=== PATIENT | female | born 1975 | race Caucasian/White ===

== ENCOUNTER 2016-07-18 21:55 | Observation (INO) | payer MEDICAID ==
[~2016-07-18] VITALS: Ht 154.9 cm; Wt 60.0 kg
[~2016-07-18 21:55] MED LIST: ALBU8I; ERGO50000 PO; FERR325T PO; LORTA5 PO; SENN1TAB11 PO; SUMA50 PO; ZOFR4TAB3 SL
[2016-07-18 21:58] VITALS: BP 158/83; PULSE 104; RESP 18; TEMP 98.7; O2SAT 100
--- NOTE | 2016-07-18 22:38 | PD ---
Physical Exam Time Seen by Provider: 22:37 Narrative 41 y/o here with substernal cp radiating into left arm , symptoms started today. +nausea, h/a. VSS seen at triage desk. Awaiting bed placement. Data Data Last Documented VS Vital Signs Date Time Temp Pulse Resp B/P Pulse Ox O2 Delivery O2 Flow Rate FiO2 07/18/16 21:58 98.7 104 18 158/83 100 MDM Medical Record Reviewed: Yes Supervised Visit with GEORGES: Yes John Turner Jul 18, 2016 22:38
[2016-07-18] MEDS ORDERED: FERR1TAB36 PO (23:50)
[2016-07-18] MEDS ORDERED: VENTAER INH (23:50)
[2016-07-18] MEDS ORDERED: LISI-515 PO (23:50)
[2016-07-19] MEDS ORDERED: ASPIRIN 81 MG CHEW TAB PO ONE
[2016-07-19] MEDS ORDERED: SODIUM CHLORIDE 0.9% FLUSH 10 ML FLUSH IVF PRN
[2016-07-19 00:07] VITALS: BP_SYST 133; BP_SYST 166; BP_DIAS 77; BP_DIAS 84; PULSE 89; RESP 18; O2SAT 100
[2016-07-19 00:18] LABS: AUTOMATED NEUTROPHIL # 4.8 TH/MM3 (1.8-7.7); BASOPHIL % 0.4 % (0.0-2.0); EOSINOPHIL % 0.6 % (0.0-4.0); HEMATOCRIT 32.1 % (35.0-46.0); LYMPHOCYTE # 1.4 TH/MM3 (1.0-4.8); MEAN CELL VOLUME 71.3 FL (80.0-100.0); MEAN CORPUSCULAR HEMOGLOBIN 22.3 PG (27.0-34.0); MEAN CORPUSCULAR HGB CONC 31.3 % (32.0-36.0); MONO % 9.1 % (0.0-8.0); NEUT % 69.9 % (16.0-70.0); PLATELET COUNT 264 TH/MM3 (150-450); RED BLOOD COUNT 4.49 MIL/MM3 (4.00-5.30); RED CELL DISTRIBUTION WIDTH 16.5 % (11.6-17.2); WHITE BLOOD COUNT 6.9 TH/MM3 (4.0-11.0)
--- NOTE | 2016-07-19 00:36 | PD ---
HPI Chief Complaint: Cardiac Complaint Time Seen by Provider: 23:46 Travel History International Travel<30 days: No Contact w/Intl Traveler<30days: No Traveled to known affect area: No History of Present Illness HPI The patient is a 41 year old female who presents to the [facility] emergency department with a history of chest pain that began prior to arrival and was radiating into her left arm. She reports that she has shortness of breath associated with this. She reports that she has had chest pain in the past, however this seemed to be worse. She reports that she last had a stress test done with the [facility] approximate 2 years ago. The patient reports that she does have a history of anemia. Her hemoglobin was last checked in May and reportedly 8.6. She reports that she is anemic related to her menstrual cycles. She reports that she has difficulty following up with a intelligence manager because of her insurance. She reports that she was recently diagnosed with high blood pressure by her primary care physician, Dr. Currie. She was started on lisinopril this past week. The patient reports having a headache that is bitemporal currently. She denies having any diaphoresis, nausea, or vomiting. I review of systems, the patient denies any recent fevers , cough, congestion, neck pain, abdominal pain, diarrhea, urinary symptoms, or neurologic symptoms. [facility] Past Medical History Narrative Medical The patient's past medical history is significant for asthma, anemia with a history of blood transfusions in the past, history of migraine headaches, hypertension, menorrhagia Anemia: Yes Asthma: Yes Diminished Hearing: No Hypertension: Yes Migraines: Yes Tetanus Vaccination: Unknown Influenza Vaccination: No ?: Not LMP: 06/16/16 : 7 Para: 4 Miscarriage: 3 Tubal Ligation: Yes Past Surgical History Narrative Surgical The patient's past surgical history is significant for bilateral tubal ligation , umbilical hernia repair, right breast lumpectomy that was benign. Abdominal Surgery: Yes (umbilical hernia repair) Section: Yes Other Surgery: Yes (right breast lumpectomy (benign)) Social History Alcohol Use: No Tobacco Use: No (quit 2011) Substance Use: No Allergies-Medications (Allergen,Severity, Reaction): Coded Allergies: Penicillin (Verified Allergy, Intermediate, Hives, 07/18/16) Reported Meds & Prescriptions Reported Meds & Active Scripts Active Reported Iron (Ferrous Sulfate) 325 Mg Tab 325 Mg PO TIDPC Ventolin Hfa 18 GM Inh (Albuterol Sulfate) 90 Mcg/Act Aer 2 Puff INH Q4-6H PRN Lisinopril 20 Mg Tab 20 Mg PO DAILY Review of Systems Except as stated in HPI: all other systems reviewed are Neg General / Constitutional: No: Fever Eyes: No: Visual changes HENT: Positive: Headaches, No: Congestion, Neck Stiffness, Neck Pain Cardiovascular: Positive: Chest Pain or Discomfort, No: Diaphoresis Respiratory: Positive: Shortness of Breath, No: Cough Gastrointestinal: No: Nausea, Vomiting, Diarrhea, Abdominal Pain Genitourinary: No: Dysuria Musculoskeletal: No: Pain Skin: No Rash Neurologic: Positive: Headache, No: Weakness, Focal Abnormalities, Change in Mentation, Slurred Speech Psychiatric: No: Depression Endocrine: No: Polydipsia Hematologic/Lymphatic: No: Easy Bruising Physical Exam Narrative General: The patient is a well-developed well-nourished female in no acute distress. Head and Neck exam: Head is normocephalic atraumatic. Eyes: EOMI, pupils are equal round and reactive to light. Nose: Midline septum with pink mucous membranes Mouth: Dentition unremarkable. Moist mucus membranes. Posterior oropharynx is not erythematous. No tonsillar hypertrophy. Uvula midline. Airway patent. Neck: No palpable lymphadenopathy. No nuchal rigidity. No thyromegaly. Cardiovascular: Regular rate and rhythm without murmurs, gallops, or rubs. Lungs: Clear to auscultation bilaterally. No wheezes, rhonchi, or rales. Abdomen: Soft, without tenderness to palpation in all 4 quadrants of the abdomen. No guarding, rebound, or rigidity. Normal bowel sounds are audible. No tenderness on palpation of McBurney's point. Negative Ochoa sign. Extremities: No clubbing, cyanosis, or edema. 2+ pulses in all 4 extremities. No calf tenderness on palpation. Back: No costovertebral angle tenderness to palpation. Neurologic Exam: Grossly nonfocal. Skin Exam: No rash noted. Intact skin that is warm and dry. Data Data Last Documented VS Vital Signs Date Time Temp Pulse Resp B/P Pulse Ox O2 Delivery O2 Flow Rate FiO2 07/19/16 00:07 89 18 166/77 100 Room Air 133/84 07/18/16 21:58 98.7 Orders Electrocardiogram (07/18/16 23:56) B-Type Natriuretic Peptide (07/18/16 23:56) Ckmb (Isoenzyme) Profile (07/18/16 23:56) Complete Blood Count With Diff (07/18/16 23:56) Comprehensive Metabolic Panel (07/18/16 23:56) Magnesium (Mg) (07/18/16:56) Prothrombin Time / Inr (Pt) (07/18/16:56) Act Partial Throm Time (Ptt) (07/18/16:56) Troponin I (07/18/16:56) Lipase (07/18/16:56) Chest, Single Ap (07/18/16:56) Ecg Monitoring (07/18/16:56) Bilateral Bp Monitoring (07/18/16:56) Iv Access Insert/Monitor (07/18/16:56) Oximetry (07/18/16:56) Oxygen Administration (07/18/16:56) Aspirin Chew (Aspirin Chew) (07/19/16 00:00) Sodium Chloride 0.9% Flush (Ns Flush) (07/19/16 00:00) Ed Urine Pregnancytest Poc (07/18/16 23:56) Type And Screen (07/19/16 00:28) Sodium Chlorid 0.9% 500 Ml Inj (Ns 500 M (07/19/16 00:45) Acetaminophen (Tylenol) (07/19/16 00:45) Nitroglycerin 2% Oint (Nitroglycerin 2% (07/19/16 00:45) Potassium Chloride (Kcl) (07/19/16 01:30) Admit Order (Ed Use Only) (07/19/16 01:30) Labs Laboratory Tests Test 07/19/16 07/19/16 00:04 00:30 White Blood Count 6.9 TH/MM3 Red Blood Count 4.49 MIL/MM3 Hemoglobin 10.0 GM/DL Hematocrit 32.1 % Mean Corpuscular Volume 71.3 FL Mean Corpuscular Hemoglobin 22.3 PG Mean Corpuscular Hemoglobin 31.3 % Concent Red Cell Distribution Width 16.5 % Platelet Count 264 TH/MM3 Mean Platelet Volume 8.5 FL Neutrophils (%) (Auto) 69.9 % Lymphocytes (%) (Auto) 20.0 % Monocytes (%) (Auto) 9.1 % Eosinophils (%) (Auto) 0.6 % Basophils (%) (Auto) 0.4 % Neutrophils # (Auto) 4.8 TH/MM3 Lymphocytes # (Auto) 1.4 TH/MM3 Monocytes # (Auto) 0.6 TH/MM3 Eosinophils # (Auto) 0.0 TH/MM3 Basophils # (Auto) 0.0 TH/MM3 CBC Comment AUTO DIFF Differential Comment AUTO DIFF CONFIRMED Prothrombin Time 11.4 SEC Prothromb Time International 1.0 RATIO Ratio Activated Partial 25.7 SEC Thromboplast Time Sodium Level 141 MEQ/L Potassium Level 3.3 MEQ/L Chloride Level 107 MEQ/L Carbon Dioxide Level 24.1 MEQ/L Anion Gap 10 MEQ/L Blood Urea Nitrogen 10 MG/DL Creatinine 0.65 MG/DL Estimat Glomerular Filtration 101 ML/MIN Rate Random Glucose 101 MG/DL Calcium Level 9.0 MG/DL Magnesium Level 1.9 MG/DL Total Bilirubin 0.2 MG/DL Aspartate Amino Transf 7 U/L (AST/SGOT) Alanine Aminotransferase 16 U/L (ALT/SGPT) Alkaline Phosphatase 50 U/L Total Creatine Kinase 66 U/L Troponin I LESS THAN 0.02 NG/ML B-Type Natriuretic Peptide 4 PG/ML Total Protein 8.3 GM/DL Albumin 4.2 GM/DL Lipase 118 U/L Blood Type O POSITIVE Antibody Screen NEGATIVE MDM Medical Decision Making Medical Screen Exam Complete: Yes Emergency Medical Condition: Yes Medical Record Reviewed: Yes Interpretation(s) Last Impressions Chest X-Ray 07/18/16 8295 Signed Impressions: Service Date/Time: Tuesday, July 19, 2016 00:18 - CONCLUSION: No acute disease. Sascha Adhikari MD Differential Diagnosis Symptomatic anemia, versus acute coronary syndrome, versus anxiety disorder, versus pneumonia, versus acid reflux Narrative Course During the course of the patients emergency department visit, the patients history, examination, and differential diagnosis were reviewed with the patient. The patient had IV access obtained and blood work sent for analysis. The patient was placed on a telecommunications manager with oximetry and blood pressure monitoring. An EKG was done on arrival. The patient's EKG shows a sinus rhythm heart rate 96, no acute ST segment elevation is noted, T waves are inverted in lead 3, V1, V2. The patient was provided aspirin 162 mg by mouth, normal saline a 500 mL bolus 1. The patient was given nitroglycerin 1 inch to chest wall, Tylenol 650 by mouth 1. The patients laboratory studies were reviewed and remarkable for a white count of 6.9, hemoglobin 10, platelets 264 with 9.1 monocytes, CMP is remarkable for potassium of 3.3, AST 7, CPK 66, troponin I less than 0.02, BNP 4, lipase 118 Radiology studies were reviewed and remarkable for a chest x-ray that shows no acute abnormality. The patients results were discussed with the patient, including the plan of care. I explained that further testing and/ or monitoring is indicated based on the patients history, examination, and/ or laboratory findings. Therefore, I recommended admission for additional evaluation. The patient expressed understanding and was agreeable with this plan. The patient was admitted to the hospital in stable condition and sent to a bed under the care of the chest pain center. Diagnosis Primary Impression: Chest pain, rule out acute myocardial infarction Admitting Information Admitting Physician Requests: Araceli Walter MD Jul 19, 2016 00:36
[2016-07-19 00:41] LABS: APTT (PATIENT) 25.7 SEC (24.3-30.1); PROTHROMBIN TIME - PATIENT 11.4 SEC (9.8-11.6)
--- NOTE | 2016-07-19 00:41 | RADRPT ---
EXAM DATE/TIME: 07/19/2016 00:18 [place] COMPARISON: No previous studies available for comparison. INDICATIONS : Chest pain. MEDICAL HISTORY : None. SURGICAL HISTORY : None. ENCOUNTER: Initial ACUITY: 1 day PAIN SCORE: 5/10 LOCATION: Bilateral chest FINDINGS: A single view of the chest demonstrates the lungs to be symmetrically aerated without evidence of mas s, infiltrate or effusion. The cardiomediastinal contours are unremarkable. Osseous structures are intact. CONCLUSION: No acute disease. Sascha Adhikari MD on July 19, 2016 at 0:38 Board Certified Radiologist. This report was verified electronically.
[2016-07-19] MEDS ORDERED: NITROGLYCERIN 2% OINT 1 GM PACKET TOPICAL ONE (00:45)
[2016-07-19] MEDS ORDERED: ACETAMINOPHEN 325 MG TAB PO ONE (00:45)
[2016-07-19] MEDS ORDERED: SODIUM CHLORID 0.9% 500 ML INJ 500 ML IV ONE (00:45)
[2016-07-19 00:49] LABS: ALT (GPT) 16 U/L (10-53); ANION GAP 10 MEQ/L (5-15); AST (GOT) 7 U/L (15-37); BICARBONATE 24.1 MEQ/L (21.0-32.0); BLOOD UREA NITROGEN 10 MG/DL (7-18); CHLORIDE 107 MEQ/L (98-107); GLOMERULAR FILTRATION RATE 101 ML/MIN (>89); MAGNESIUM 1.9 MG/DL (1.5-2.5); POTASSIUM 3.3 MEQ/L (3.5-5.1); SODIUM (NA) 141 MEQ/L (136-145)
[2016-07-19 00:53] LABS: ALKALINE PHOSPHATASE 50 U/L (45-117); TOTAL BILIRUBIN ADULT 0.2 MG/DL (0.2-1.0)
[2016-07-19 00:54] LABS: CREATINE KINASE 66 U/L (26-192)
[2016-07-19 00:59] LABS: HEMO FLAGS AUTO DIFF
[2016-07-19 01:18] LABS: SCAN/DIFF AUTO DIFF CONFIRMED
[2016-07-19] MEDS ORDERED: POTASSIUM CHLORIDE 20 MEQ CONTROLLED RELEASE TAB PO ONE (01:30)
[2016-07-19] MEDS ORDERED: ONDANSETRON HCL 4 MG/2 ML VIAL IV PRN (01:45)
[2016-07-19] MEDS ORDERED: ACETAMINOPHEN 500 MG CPLT PO PRN (01:45)
[2016-07-19 02:02] VITALS: O2SAT 99
[2016-07-19 03:17] VITALS: BP 102/66; PULSE 88; RESP 20; O2SAT 100
[2016-07-19 03:43] LABS: CREATINE KINASE 57 U/L (26-192)
[2016-07-19 04:00] VITALS: BP 97/54; PULSE 72; RESP 18; TEMP 98.8; O2SAT 98
[2016-07-19 06:21] LABS: CREATINE KINASE 55 U/L (26-192)
[2016-07-19 07:16] VITALS: BP 98/63; PULSE 75; RESP 20; TEMP 99.1; O2SAT 97
--- NOTE | 2016-07-19 08:06 | MH ---
cc: ANURAG GREEN MD DATE OF ADMISSION: 07/19/2016 HISTORY OF PRESENT ILLNESS This is a 41-year-old woman who is admitted to the hospital for chest discomfort. She was in her usual state of health yesterday when she began having acute substernal chest discomfort which radiated into her left arm. This was associated with some mild shortness of breath. No diaphoresis or nausea was present. She denied any pleuritic pain, cough or sputum production. She came to the emergency department where an electrocardiogram was done which was essentially normal. She was admitted to our chest pain center and after approximately four or five hours her discomfort spontaneously waned and has not recurred. Serial troponins have been unremarkable. Her risk factors for coronary artery disease are significant only for her father with premature coronary disease. She does not keep in touch with him and is not sure at what age this occurred but thinks in his 60s and had bypass surgery. She denies any history of smoking, diabetes or hyperlipidemia. She has recently been diagnosed with hypertension and placed on lisinopril. Her past medical history is otherwise significant for chronic anemia requiring periodic transfusions albeit infrequently on a yearly basis. She also has a history of asthma and migraine headaches MEDICATIONS Medications at home include: 1. Lisinopril which is a recent addition in the last several days. 2. Imitrex on a p.r.n. basis. 3. Albuterol on a p.r.n. basis. 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 She does not smoke, drink or use recreational drugs. ALLERGIES PENICILLIN. REVIEW OF SYSTEMS Otherwise unremarkable. PHYSICAL EXAMINATION VITAL SIGNS: Blood pressure 100/70, pulse 70 and regular. NECK: There is no neck vein distension. Carotids are normal. LUNGS: Clear. CARDIOVASCULAR: Regular rate and rhythm. There is no murmur, gallop or rub noted. There is no tenderness to palpation. ABDOMEN: Unremarkable. EXTREMITIES: No edema. ASSESSMENT/PLAN The patient has had atypical chest discomfort of uncertain etiology. Will plan a treadmill exercise test for further evaluation. We do note in her laboratory exam that the potassium is 3.3 and will supplement this while she is here in the chest pain center. Anurag Green MD DLW/ROLAN Rene: 07/19/2016/7:45 AM /7:52 AM
--- NOTE | 2016-07-19 08:29 | HHI.DCPOC ---
Discharge Care Plan Diagnosis: (1) Chest pain (2) Hypertension Goals to Promote Your Health * To prevent worsening of your condition and complications * To maintain your health at the optimal level Directions to Meet Your Goals Take your medications as prescribed Follow your dietary instruction Follow activity as directed Keep your appointments as scheduled Take your immunizations and boosters as scheduled If your symptoms worsen call your PCP, if no PCP go to Urgent Care Center or Emergency Room Smoking is Dangerous to Your Health. Avoid second hand smoke Call the 24-hour hour crisis hotline for domestic abuse at [place] Palacio Jul 19, 2016 08:29
[2016-07-19] MEDS ORDERED: POTASSIUM CHLORIDE 10 MEQ CAP PO SCH (09:00)
[2016-07-19] MEDS ORDERED: LISINOPRIL 10 MG TAB PO SCH (09:00)
[2016-07-19] MEDS ORDERED: PANTOPRAZOLE SOD 40 MG DELAYED RELEASE TAB PO SCH (09:00)
[2016-07-19] MEDS ORDERED: SODIUM CHLORIDE 0.9% FLUSH 10 ML FLUSH IV FLUSH SCH (09:00)
--- NOTE | 2016-07-19 12:04 | EKG ---
Date Performed: 07/19/2016 Time Performed: 03:01:33 PTAGE: 41 years EKG: Sinus rhythm POSSIBLE LEFT ATRIAL ENLARGEMENT BORDERLINE ECG PREVIOUS TRACING : 07/18/2016 22.59 Since previous tracing, no significant change noted DOCTOR: Anurag Green Interpretating Date/Time 07/19/2016 11:56:43
--- NOTE | 2016-07-19 12:06 | EKG ---
Date Performed: 07/18/2016 Time Performed: 22:59:10 PTAGE: 41 years EKG: Sinus rhythm POSSIBLE LEFT ATRIAL ENLARGEMENT BORDERLINE ECG NO PREVIOUS TRACING DOCTOR: Anurag Green Interpretating Date/Time 07/19/2016 11:59:46
--- NOTE | 2016-07-19 12:10 | EKG ---
Date Performed: 07/19/2016 Time Performed: 05:59:38 PTAGE: 41 years EKG: Sinus rhythm POSSIBLE LEFT ATRIAL ENLARGEMENT BORDERLINE ECG PREVIOUS TRACING : 07/19/2016 03.01 Since previous tracing, no significant change noted DOCTOR: Anurag Green Interpretating Date/Time 07/19/2016 12:04:44
--- NOTE | 2016-07-19 12:12 | TR ---
Date Performed: 07/19/2016 Time Performed: 08:04:23 DOCTOR: Anurag Green DRUG LIST: CLINICAL HISTORY: CHEST PAIN REASON FOR TEST: REASON FOR ENDING: OBSERVATION: CONCLUSION: BRE PROTOCOL. NO CP. TEST STOPPED AFTER REACHING GOAL HR SECONDARY TO SOB AND LEG FATIGUE. POOR EXERCISE TOLERANCE. OCCASIONAL PVCS.Maximum FV=488 % Max HR Achieved=86.0% Maximum BP=1 Total Exercise Time=4:35 COMMENTS: Patient exercised using the Bre protocol. No electrocardiographic changes were seen to suggest ischemia. Hemodynamic response to exercise was normal. No significant arrhythmia was prese nt.
== END 2016-07-19 09:56 | disposition home or self-care (01) ==
LOC: NEPE 21:55 → NEDA 07-19 01:32 → NEPHCDU 07-19 03:12
PROVIDERS: ADMIT Internal Medicine Interventional Cardiology; ATTEND Internal Medicine Interventional Cardiology
DX: R07.89 Other chest pain (principal); I10 Essential (primary) hypertension; D64.9 Anemia, unspecified; J45.909 Unspecified asthma, uncomplicated; G43.909 Migraine, unspecified, not intractable, without status migrainosus; Z88.0 Allergy status to penicillin; Z79.51 Long term (current) use of inhaled steroids; Z82.49 Family history of ischemic heart disease and other diseases of the circulatory system
CPT/HCPCS: 71010; 80053; 82550; 83690; 83735; 83880; 84484; 84703; 85025; 85610; 85730; 86850; 86900; 86901; 93005; 93017; 99285; G0378; J7040